=== PATIENT | male | born 2000 | race Two or more races ===

== ENCOUNTER 2023-08-16 15:35 | Emergency (ER) | payer MEDICAID ==
[~2023-08-16] VITALS: Ht 172.7 cm; Wt 71.0 kg
[2023-08-16 15:47] VITALS: BP 118/72; PULSE 60; RESP 16; TEMP 97.9
[2023-08-16] MEDS ORDERED: GABA-1216 PO (16:06)
[2023-08-16] MEDS ORDERED: ACET-66 PO (16:06)
== END 2023-08-16 18:29 | disposition home or self-care (01) ==
LOC: EMS 15:42
DX: I86.1 Scrotal varices (principal); Z87.442 Personal history of urinary calculi
CPT/HCPCS: 99283